=== PATIENT | male | born 1985 | race Caucasian/White ===

== ENCOUNTER 2018-12-18 12:35 | Emergency (ER) | payer OTHER ==
[~2018-12-18] VITALS: Ht 180.3 cm; Wt 74.8 kg
[2018-12-18] MEDS ORDERED: GENVOYA TABLET1 EACH PO (12:54)
[2018-12-18] MEDS ORDERED: ZOVIRAX200 MG PO (13:04)
[2018-12-18] MEDS ORDERED: ULTRAM50 MG PO (13:04)
== END 2018-12-18 13:18 | disposition home or self-care (01) ==
LOC: ED 12:35
DX: N50.89 Other specified disorders of the male genital organs (principal); B20 Human immunodeficiency virus [HIV] disease
CPT/HCPCS: 99282